=== PATIENT | female | born 2000 | race African-American/Black ===

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

== ENCOUNTER 2021-08-19 22:59 | Emergency (ER) | payer SELFPAY ==
[2021-08-19 23:44] LABS: Hemoglobin 6.9 g/dL (12.0-16.0); Mean Corpuscular HGB CONC 28.8 g/dL (32.0-36.0); Mean Corpuscular Hemoglobin 17.9 pg (27.0-31.0); Mean Corpuscular Volume 62.2 fL (78.0-98.0); Mean Platelet Volume 4.9 fL (7.4-10.4); Platelet Count 248 thou/uL (130-400); RBC Distribution Width 16.9 % (11.5-14.5); Red Blood Cell (RBC) Count 3.84 mill/uL (4.20-5.40); White Blood Cell (WBC) Count 6.5 thou/uL (4.8-10.8)
[2021-08-19 23:45] LABS: #Lymphocytes 2.5 thou/uL (1.20-3.40); #Monocytes 0.5 thou/uL (0.11-0.59); #Neutrophils 3.5 thou/uL (1.40-6.50); %Basophils 0.5 % (0.0-1.0); %Eosinophils 0.7 % (0.0-10.0); %Lymphocytes 37.9 % (21.0-51.0); %Monocytes 7.1 % (0.0-10.0); %Neutrophils 53.9 % (42.0-75.0)
[2021-08-19 23:55] LABS: Hypochromia MODERATE=16-30 cells (100X) (0-5/hpf); MDiff Complete? YES; Platelet Morphology Comment Appears Adequate; Reflex for Review?? YES
[2021-08-19 23:59] LABS: ALT (SGPT) 14 U/L (8-55); AST (SGOT) 16 U/L (5-34); Albumin 4.5 g/dL (3.5-5.0); Alkaline Phosphatase 69 U/L (40-110); Anion Gap 15 mmol/L (10-20); BUN (Urea Nitrogen) 10 mg/dL (7.0-18.7); Bilirubin, Total 0.8 mg/dL (0.2-1.2); Calc. Creatinine Clearance 0 mL/min (70-130); Calcium 10.2 mg/dL (7.8-10.44); Carbon Dioxide 22 mmol/L (22-29); Chloride 105 mmol/L (98-107); Globulin 3.5 g/dL (2.4-3.5); Glucose 94 mg/dL (70-105); Potassium 3.2 mmol/L (3.5-5.1); Sodium 139 mmol/L (136-145)
[2021-08-20 01:42] LABS: #Eosinphils 0.1 thou/uL (0.0-0.7); #Lymphocytes 2.3 thou/uL (1.20-3.40); #Monocytes 0.6 thou/uL (0.11-0.59); #Neutrophils 3.4 thou/uL (1.40-6.50); %Basophils 0.3 % (0.0-1.0); %Eosinophils 2.2 % (0.0-10.0); %Lymphocytes 36.3 % (21.0-51.0); %Monocytes 8.7 % (0.0-10.0); %Neutrophils 52.5 % (42.0-75.0); Hemoglobin 6.7 g/dL (12.0-16.0); Mean Corpuscular HGB CONC 29.8 g/dL (32.0-36.0); Mean Corpuscular Hemoglobin 18.5 pg (27.0-31.0); Mean Corpuscular Volume 62.3 fL (78.0-98.0); Mean Platelet Volume 5.5 fL (7.4-10.4); Platelet Count 269 thou/uL (130-400); RBC Distribution Width 16.7 % (11.5-14.5); Red Blood Cell (RBC) Count 3.61 mill/uL (4.20-5.40); White Blood Cell (WBC) Count 6.4 thou/uL (4.8-10.8)
== END 2021-08-20 07:32 | disposition home or self-care (01) ==
LOC: ERS 22:59
DX: D64.9 Anemia, unspecified (principal); R07.2 Precordial pain
CPT/HCPCS: 36415; 36430; 71045; 80053; 85025; 85060; 86850; 86900; 86901; 86922; 93005; P9016

== ENCOUNTER 2023-12-09 10:28 | Emergency (ER) | payer MEDICAID, SELFPAY ==
[2023-12-09] MEDS ORDERED: Bacitracin 1 PK ONE (11:26)
== END 2023-12-09 11:34 | disposition home or self-care (01) ==
LOC: ERS 10:28
DX: L03.113 Cellulitis of right upper limb (principal)
CPT/HCPCS: 99283

== ENCOUNTER 2024-01-13 23:10 | Emergency (ER) | payer MEDICAID, OTHER ==
[2024-01-14 00:07] LABS: Mean Corpuscular Volume 72.8 fL (78.0-98.0)
[2024-01-14 00:27] LABS: Anion Gap 15 mmol/L (10-20); BUN (Urea Nitrogen) 12 mg/dL (7.0-18.7); Calc. Creatinine Clearance 0 mL/min (70-130); Calcium 9.5 mg/dL (7.8-10.44); Carbon Dioxide 21 mmol/L (22-29); Chloride 107 mmol/L (98-107); Estimated GFR 123; Glucose 92 mg/dL (70-105); Magnesium 2.2 mg/dL (1.6-2.6); Potassium 3.7 mmol/L (3.5-5.1); Sodium 139 mmol/L (136-145)
[2024-01-14 00:33] LABS: Troponin I Less than 0.010 ng/mL (< 0.028)
[2024-01-14 00:42] LABS: Anisocytosis SLIGHT = 6-15 cells HPF (0-5); Hypochromia SLIGHT = 6-15 cells HPF (0-5); Microcytosis SLIGHT = 6-15 cells HPF (0-5); Platelet Adequacy Comment Platelets Normal
[2024-01-14 00:48] LABS: #Basophils 0.03 10x3/uL (0.0-0.2); %Basophils 0.7 % (0.0-1.0); %Eosinophils 0.7 % (0.0-10.0); %Lymphocytes 31.6 % (21.0-51.0); %Monocytes 5.3 % (0.0-10.0); %Neutrophils 61.5 % (42.0-75.0); Hemoglobin 6.2 g/dL (12.0-16.0); Mean Corpuscular HGB CONC 28.2 g/dL (32.0-36.0); Mean Corpuscular Hemoglobin 20.5 pg (27.0-31.0); Platelet Count 309 10x3/uL (130-400); RBC Distribution Width 18.3 % (11.5-14.5); Red Blood Cell (RBC) Count 3.02 mill/uL (4.20-5.40)
== END 2024-01-14 04:40 | disposition home or self-care (01) ==
LOC: ERS 23:10
DX: N92.0 Excessive and frequent menstruation with regular cycle (principal); D64.9 Anemia, unspecified; Z55.0 Illiteracy and low-level literacy
CPT/HCPCS: 36430; 80048; 83735; 83880; 84484; 85025; 86850; 86900; 86901; 93005; P9016